=== PATIENT | female | born 1945 | race Asian ===

== ENCOUNTER 2019-02-23 20:41 | Inpatient (IN) | payer MEDICARE, MEDICAID ==
[~2019-02-23] VITALS: Ht 154.9 cm; Wt 60.3 kg
--- NOTE | 2019-02-23 21:00 | NUR ---
PATIENT BIB PRIVATE AMBULANCE FROM [facility] ON 5150 HOLD FOR DTS. PATIENT IS A/OX3. COOPERATIVE. DENIES SI BUT ADMITS TO BEING DEPRESSED. NO DISTRESS NOTED
[2019-02-23] MEDS ORDERED: INSU100C SQ (21:12)
[2019-02-23] MEDS ORDERED: ONDA2VIA IV (21:12)
[2019-02-23] MEDS ORDERED: HYDR20VI6 IVP (21:12)
[2019-02-23] MEDS ORDERED: LABE25SY IV (21:12)
[2019-02-23] MEDS ORDERED: ATOR40TA PO (21:12)
[2019-02-23] MEDS ORDERED: DEXT38GE12 PO (21:12)
[2019-02-23] MEDS ORDERED: LORA2DIS5 IVP (21:12)
[2019-02-23] MEDS ORDERED: FENT50AM IV (21:12)
[2019-02-23] MEDS ORDERED: GLUC1KIT IJ (21:12)
[2019-02-23] MEDS ORDERED: CIPR-262 PO (21:12)
[2019-02-23] MEDS ORDERED: PANT40VI IV (21:12)
[2019-02-23] MEDS ORDERED: DANT25CA2 PO (21:12)
[2019-02-23] MEDS ORDERED: GLIP1TAB6 PO (21:17)
[2019-02-23] MEDS ORDERED: ROSU10TA2 PO (21:17)
[2019-02-23] MEDS ORDERED: ASPI81TA31 PO (21:17)
[2019-02-23] MEDS ORDERED: VALS320T2 PO (21:17)
--- NOTE | 2019-02-23 21:30 | NUR ---
WAITING FOR PCXR RESULT
--- NOTE | 2019-02-23 22:22 | NUR ---
CALLED [facility] FOR READING FOR PCXR
--- NOTE | 2019-02-23 23:02 | NUR ---
MEDICALLY CLEARED BY DR OLEARY
--- NOTE | 2019-02-23 23:10 | NUR ---
TRANSFERED TO [facility] VIA [facility]
[2019-02-24] MEDS ORDERED: LORAZEPAM 1 MG TABLET PO PRN (00:30)
[2019-02-24] MEDS ORDERED: MAG HYDROX/AL HYDROX/SIMETH 30 ML LIQUID UDC PO PRN (00:30)
[2019-02-24] MEDS ORDERED: MAGNESIUM HYDROXIDE 30 ML LIQUID UDC PO PRN (00:30)
--- NOTE | 2019-02-24 01:59 | NUR ---
received to care, at 2330, from the emergency room, on a 72 hour hold, for danger to self, a transfer from [facility]. according to the hold, she had a failed suicide attempt, by overdosing on aspirin, and left a suicide note to her family. per the patient, she has been increasingly depressed over the past 4 years, ever since she had back surgery that was unsuccessful. she is non ambulatory and wheel chair bound. her family are her caregivers, but she feels she has been a burden to them. she was intubated during tx, and was extubated on 02/17. she also apparently had dialysis, as she came with a pressure dressing to her right lateral neck. upon arrival on the unit, she was pleasant, and cooperative. denied SI, or desire to harm self. advisement and patients rights booklet was given. pt was assisted to bed. as of now she remains asleep. no distress noted.
[2019-02-24 02:04] VITALS: BP 139/58
--- NOTE | 2019-02-24 06:00 | NUR ---
slept 5 hours total. no distress noted.
[2019-02-24 07:30] VITALS: BP 153/70
[2019-02-24] MEDS ORDERED: LABETALOL IV (07:56)
[2019-02-24] MEDS ORDERED: DEXTROSE 50% 50 ML DISP.SYRIN IV PRN (12:00)
[2019-02-24] MEDS ORDERED: VALSARTAN 160 MG TABLET PO SCH (12:24)
[2019-02-24] MEDS: glipiZIDE 5 MG TABLET PO SCH ×2 (13:35→16:54)
[2019-02-24] MEDS: METFORMIN HCL 500 MG TABLET PO SCH ×2 (13:35→16:54)
[2019-02-24] MEDS: CLONIDINE HCL 0.1 MG TABLET PO PRN (13:36)
--- NOTE | 2019-02-24 14:00 | NUR ---
Gps/LvnUnable to administer, diovan not a hope meds. per Sylvester Landrum , claimed trying to get hold of Dr Lozada to clarify order.
[2019-02-24] MEDS ORDERED: AMLO5TAB4 PO (14:22)
[2019-02-24] MEDS ORDERED: METO25TA6 PO (14:23)
[2019-02-24] MEDS ORDERED: PANT40TA2 PO (14:24)
[2019-02-24] MEDS ORDERED: CIPR-263 PO (14:25)
[2019-02-24 16:00] VITALS: BP 110/62
[2019-02-24] MEDS: BLOOD SUGAR DIAGNOSTIC 1 EACH STRIP VI SCH ×2 (16:34→21:54)
[2019-02-24] MEDS: INSULIN REGULAR, HUMAN 300 UNIT/3 ML VIAL SQ PRN (16:37)
[2019-02-24] MEDS ORDERED: METFORMIN HCL PO SCH (17:00)
[2019-02-24] MEDS ORDERED: GLIPIZIDE PO SCH (17:00)
[2019-02-24] MEDS ORDERED: [UNRECOGNIZED DRUG - OTHER] PO SCH (17:00)
--- NOTE | 2019-02-24 17:27 | NUR ---
Gps/Loader Magazine Grinder- Refused to get oob to her chair, per patient she cannot walk she uses wheel chair at home.
[2019-02-24 19:30] VITALS: BP 112/51
[2019-02-24] MEDS: ATORVASTATIN 40 MG TABLET PO SCH (20:15)
[2019-02-24] MEDS: SERTRALINE HCL 50 MG TABLET PO SCH (20:15)
[2019-02-24] MEDS: ACETAMINOPHEN 325 MG TABLET PO PRN (20:16)
--- NOTE | 2019-02-24 22:00 | NUR ---
received to care, lying in bed, pleasant upon approach. denies SI, or desire to harm self. compliant with medications and staff direction. temp initially was 100.1. tylenol and po fluids were given, and it went down to 97.4. as of 2199, she appears to be asleep. no distress noted. will continue to monitor closely.
--- NOTE | 2019-02-25 06:00 | NUR ---
slept 7.25 hours total. no distress noted.
[2019-02-25] MEDS: BLOOD SUGAR DIAGNOSTIC 1 EACH STRIP VI SCH ×4 (06:42→20:24)
[2019-02-25 07:21] LABS: BASOPHILS % (AUTO) 0.4 % (0.0-2.0); EOSINOPHILS # (AUTO) 0.1 K/uL (0.0-0.7); EOSINOPHILS % (AUTO) 2.3 % (0.0-7.0); HEMATOCRIT 27.1 % (31.2-41.9); HEMOGLOBIN 9.3 g/dL (10.9-14.3); LYMPHOCYTES # (AUTO) 0.6 K/uL (20.0-40.0); LYMPHOCYTES % (AUTO) 13.8 % (20.5-51.5); MEAN CORPUSCULAR HEMOGLOBIN 30.3 uug (24.7-32.8); MEAN CORPUSCULAR HGB CONC 34 g/dL (32.3-35.6); MEAN CORPUSCULAR VOLUME 88.6 fL (75.5-95.3); MONOCYTES # (AUTO) 0.3 K/uL (2.0-10.0); MONOCYTES % (AUTO) 6.4 % (0.0-11.0); NEUTROPHILS # (AUTO) 3.5 K/uL (1.8-8.9); NEUTROPHILS % (AUTO) 77.1 % (38.5-71.5); PLATELET COUNT (AUTO) 267 K/uL (179-408); RED BLOOD CELL COUNT(AUTO) 3.06 MIL/uL (3.63-4.92); WHITE BLOOD COUNT (AUTO) 4.6 K/uL (3.8-11.8)
[2019-02-25 07:30] VITALS: BP 120/70
[2019-02-25 07:40] LABS: THYROID STIMULATING HORMONE 0.646 mIU/mL (0.358-3.740)
[2019-02-25 08:05] LABS: ALANINE AMINOTRANSFERASE 12 U/L (14-59); ALKALINE PHOSPHATASE 111 U/L (50-136); ASPARTATE AMINOTRANSFERASE 11 U/L (15-37); BILIRUBIN,TOTAL 0.8 mg/dL (0.2-1.0); CARBON DIOXIDE 22 mmol/L (21-32); CHLORIDE 104 mmol/L (98-107); CREATININE 1.7 mg/dL (0.6-1.3); GLUCOSE 117 mg/dL (74-106); MAGNESIUM 2.2 mg/dL (1.8-2.4); PHOSPHOROUS 4.5 mg/dL (2.5-4.9); POTASSIUM 4.7 mmol/L (3.5-5.1); TOTAL PROTEIN, SERUM 6.8 g/dL (6.4-8.2)
[2019-02-25 08:49] LABS: UREA NITROGEN, BLOOD 41 mg/dL (7-18)
[2019-02-25] MEDS ORDERED: Medication Not On Formulary EA (Valsartan (Diovan) 320 MG) PO SCH (09:00)
[2019-02-25] MEDS: glipiZIDE 5 MG TABLET PO SCH ×2 (09:09→18:59)
[2019-02-25] MEDS: ASPIRIN 81 MG TAB.CHEW PO SCH (09:09)
[2019-02-25] MEDS: METFORMIN HCL 500 MG TABLET PO SCH ×2 (09:09→19:00)
[2019-02-25] MEDS: SERTRALINE HCL 50 MG TABLET PO SCH (09:09)
--- NOTE | 2019-02-25 09:51 | NUR ---
FIREARMS REPORT: Woods Rider completed and submitted a [facility] firearms report for [address] Disability certification. A copy of report has been placed in patient chart. Addendum: 02/25/19 at 0953 by ZULY LANDA Correction Report for 5150, Danger to Self
--- NOTE | 2019-02-25 10:53 | NUR ---
Discharge Plan Pt resides at home [[address] [place] [address]; [phone]] with and son. Daughter in law is the person to notify, January [[phone]]. Patient has been accepted to [facility] [[phone], spoke with Alexandro. pt will return there upon discharge. Per patient, "I would like to go to a long term facility". SW will speak with pt, family, and MD regarding appropriate discharge plans, SW will form a safe and proper discharge plan.
[2019-02-25] MEDS: INSULIN REGULAR, HUMAN 300 UNIT/3 ML VIAL SQ PRN (12:00)
[2019-02-25 15:54] VITALS: BP 121/62
[2019-02-25 20:49] VITALS: BP 122/56
[2019-02-25] MEDS: ATORVASTATIN 40 MG TABLET PO SCH (21:00)
[2019-02-25] MEDS: ACETAMINOPHEN 325 MG TABLET PO PRN (21:01)
[2019-02-25] MEDS: TEMAZEPAM 7.5 MG CAPSULE PO PRN (21:01)
[2019-02-26] MEDS: BLOOD SUGAR DIAGNOSTIC 1 EACH STRIP VI SCH ×4 (06:45→20:05)
[2019-02-26 08:00] VITALS: BP 134/73
[2019-02-26] MEDS: SERTRALINE HCL 50 MG TABLET PO SCH (08:27)
[2019-02-26] MEDS: ASPIRIN 81 MG TAB.CHEW PO SCH (08:27)
[2019-02-26] MEDS: glipiZIDE 5 MG TABLET PO SCH ×2 (08:36→16:26)
[2019-02-26] MEDS: METFORMIN HCL 500 MG TABLET PO SCH ×2 (08:36→16:26)
--- NOTE | 2019-02-26 12:35 | NUR ---
GPS :PATIENT AOX3, DENIES PAIN DENIES SI AND HI, PATIENT REFUSE TO SIT ON THE CHAIR,COMPLIANT WITH MEDICATION REMAINS ISOLATIVE AND WITHDRAWN, WILL CONTINUE MONITOR
[2019-02-26 16:00] VITALS: BP 140/75
[2019-02-26] MEDS: INSULIN REGULAR, HUMAN 300 UNIT/3 ML VIAL SQ PRN ×2 (16:33→20:23)
[2019-02-26] MEDS: ATORVASTATIN 40 MG TABLET PO SCH (20:05)
[2019-02-26] MEDS: CLONIDINE HCL 0.1 MG TABLET PO PRN (20:24)
[2019-02-26 20:34] VITALS: BP 174/63
[2019-02-27] MEDS: BLOOD SUGAR DIAGNOSTIC 1 EACH STRIP VI SCH ×4 (06:32→21:05)
--- NOTE | 2019-02-27 06:44 | NUR ---
AM BS 153. ADLs performed, diaper changed, skin care provided. Remained isolative and seclusive for the entire shift. Slept 8 hours.
[2019-02-27 07:30] VITALS: BP 141/70
[2019-02-27] MEDS: INSULIN REGULAR, HUMAN 300 UNIT/3 ML VIAL SQ PRN (07:35)
[2019-02-27] MEDS: glipiZIDE 5 MG TABLET PO SCH ×2 (08:13→17:21)
[2019-02-27] MEDS: SERTRALINE HCL 50 MG TABLET PO SCH (08:13)
[2019-02-27] MEDS: ASPIRIN 81 MG TAB.CHEW PO SCH (08:13)
[2019-02-27] MEDS: METFORMIN HCL 500 MG TABLET PO SCH (08:13)
[2019-02-27] MEDS: LINAGLIPTIN 5 MG TABLET PO SCH (17:21)
[2019-02-27 20:00] VITALS: BP 142/59
--- NOTE | 2019-02-27 20:15 | NUR ---
RECEIVED PATIENT IN HER ROOM IN BED, SHE IS NOTED AWAKE A/O X 3. ABLE TO VERBALIZED FEELINGS. SHE IS CALM AND PLEASANT UPON APPROACHED. SHE CONTINUE WITHDRAWN, LOW MOOD. HOWEVER, SHE DENIES SI AND SHE IS ABLE TO CFS. UPON INTERVIEW, SHE STATED, "I AM GOING TO A [facility] AFTER HERE". PATIENT V/S STABLE. ACCU CHECK QHS 82. PATIENT IS TOTAL CARE. FALL AND SAFETY PRECAUTION ARE IN PLACE. PT IS REASSURED FOR HIS SAFETY. WILL CONTINUE TO MONITOR.
[2019-02-27] MEDS: ATORVASTATIN 40 MG TABLET PO SCH (21:04)
[2019-02-28] MEDS: BLOOD SUGAR DIAGNOSTIC 1 EACH STRIP VI SCH ×4 (06:25→20:03)
[2019-02-28 07:30] VITALS: BP 168/87
[2019-02-28 07:32] LABS: BASOPHILS % (AUTO) 0.7 % (0.0-2.0); EOSINOPHILS # (AUTO) 0.1 K/uL (0.0-0.7); EOSINOPHILS % (AUTO) 1.8 % (0.0-7.0); HEMATOCRIT 24.5 % (31.2-41.9); HEMOGLOBIN 8.3 g/dL (10.9-14.3); LYMPHOCYTES # (AUTO) 0.6 K/uL (20.0-40.0); LYMPHOCYTES % (AUTO) 13.1 % (20.5-51.5); MEAN CORPUSCULAR HEMOGLOBIN 29.7 uug (24.7-32.8); MEAN CORPUSCULAR HGB CONC 34 g/dL (32.3-35.6); MEAN CORPUSCULAR VOLUME 87.6 fL (75.5-95.3); MONOCYTES # (AUTO) 0.5 K/uL (2.0-10.0); MONOCYTES % (AUTO) 10.6 % (0.0-11.0); NEUTROPHILS # (AUTO) 3.2 K/uL (1.8-8.9); NEUTROPHILS % (AUTO) 73.8 % (38.5-71.5); PLATELET COUNT (AUTO) 278 K/uL (179-408); WHITE BLOOD COUNT (AUTO) 4.3 K/uL (3.8-11.8)
[2019-02-28 08:11] LABS: ALANINE AMINOTRANSFERASE < 6 U/L (14-59); ALKALINE PHOSPHATASE 89 U/L (50-136); ASPARTATE AMINOTRANSFERASE 9 U/L (15-37); BILIRUBIN,TOTAL 0.7 mg/dL (0.2-1.0); CARBON DIOXIDE 25 mmol/L (21-32); CHLORIDE 103 mmol/L (98-107); CREATININE 1.6 mg/dL (0.6-1.3); GLUCOSE 144 mg/dL (74-106); MAGNESIUM 2.2 mg/dL (1.8-2.4); PHOSPHOROUS 3.5 mg/dL (2.5-4.9); POTASSIUM 4.2 mmol/L (3.5-5.1); TOTAL PROTEIN, SERUM 7.3 g/dL (6.4-8.2); UREA NITROGEN, BLOOD 38 mg/dL (7-18)
[2019-02-28] MEDS: glipiZIDE 5 MG TABLET PO SCH ×2 (08:36→16:38)
[2019-02-28] MEDS: SERTRALINE HCL 50 MG TABLET PO SCH (08:36)
[2019-02-28] MEDS: LINAGLIPTIN 5 MG TABLET PO SCH (08:36)
[2019-02-28] MEDS: ASPIRIN 81 MG TAB.CHEW PO SCH (08:36)
[2019-02-28] MEDS: ACETAMINOPHEN 325 MG TABLET PO PRN (08:53)
[2019-02-28 10:05] LABS: *CLARITY,URINE TURBID (CLEAR)
[2019-02-28 10:11] LABS: BACTERIA,URINE MANY /HPF (NONE SEEN); RBC,URINE 80-100 /HPF (0-3); WBC,URINE TNTC /HPF (0-3)
[2019-02-28 10:12] LABS: SQUAMOUS EPITHELIAL CELL,UR FEW /HPF (NONE SEEN)
[2019-02-28 10:12] LABS: CREATINE KINASE, TOTAL 34 U/L (26-192)
[2019-02-28 11:14] LABS: *CREATININE,URINE 59.8 mg/dL (30-125)
[2019-02-28] MEDS: INSULIN REGULAR, HUMAN 300 UNIT/3 ML VIAL SQ PRN ×2 (11:38→20:06)
[2019-02-28 15:23] VITALS: BP 146/74
[2019-02-28] MEDS: SULFAMETH/TRIMETH 800/160 MG TABLET PO SCH (16:38)
--- NOTE | 2019-02-28 17:07 | NUR ---
RECIEVED PATIENT AOX4, ISOLATIVE AND WITHDRAWN, COLLECTED URINE , PATIENT URINE POSITIVE WITH UTI, STARTED WITH ATB, ENCOURAGE HYDRATION, PATIENT HAD ULTRASOUND OF BLADDER AND KIDNEY , PATIENT SEEN RETAINING URINE , STRAIGHT CATHETER DONE WITH TEA COLORED WITH PUS URINE NOTED, PATIENT URINE OUTPUT MWAS AT 1600ML, DENIES PAIN , COMPLIANT WITH MEDICATION, PATIENT VERBALIZES THAT AT HOME SHE WAS THE ONE DOING HER ADL
[2019-02-28 20:00] VITALS: BP 127/66
[2019-02-28] MEDS: ATORVASTATIN 40 MG TABLET PO SCH (20:03)
[2019-03-01] MEDS: ACETAMINOPHEN 325 MG TABLET PO PRN (06:42)
[2019-03-01] MEDS: BLOOD SUGAR DIAGNOSTIC 1 EACH STRIP VI SCH ×4 (06:42→20:46)
--- NOTE | 2019-03-01 06:50 | NUR ---
Pt noted to retain urine. Bladder scanned and >999ml noted in all 4 quadrants. Pt c/o mild discomfort, Tylenol 650mg administered per her request. [employer] called and message was left for Bharat Glynn regarding urine retention, awaiting call back. Will endorse to oncoming shift.
--- NOTE | 2019-03-01 06:52 | NUR ---
AM BS 78
[2019-03-01 07:13] LABS: BASOPHILS % (AUTO) 0.9 % (0.0-2.0); EOSINOPHILS # (AUTO) 0.1 K/uL (0.0-0.7); EOSINOPHILS % (AUTO) 3.7 % (0.0-7.0); HEMATOCRIT 23.7 % (31.2-41.9); HEMOGLOBIN 8.1 g/dL (10.9-14.3); LYMPHOCYTES # (AUTO) 0.6 K/uL (20.0-40.0); LYMPHOCYTES % (AUTO) 18.2 % (20.5-51.5); MEAN CORPUSCULAR HEMOGLOBIN 29.8 uug (24.7-32.8); MEAN CORPUSCULAR HGB CONC 34 g/dL (32.3-35.6); MEAN CORPUSCULAR VOLUME 87.2 fL (75.5-95.3); MONOCYTES # (AUTO) 0.3 K/uL (2.0-10.0); MONOCYTES % (AUTO) 8.8 % (0.0-11.0); NEUTROPHILS # (AUTO) 2.4 K/uL (1.8-8.9); NEUTROPHILS % (AUTO) 68.4 % (38.5-71.5); PLATELET COUNT (AUTO) 303 K/uL (179-408); RED BLOOD CELL COUNT(AUTO) 2.72 MIL/uL (3.63-4.92); WHITE BLOOD COUNT (AUTO) 3.5 K/uL (3.8-11.8)
[2019-03-01 07:26] LABS: IRON, SERUM 24 ug/dL (50-175)
[2019-03-01 07:30] VITALS: BP 142/69
--- NOTE | 2019-03-01 07:45 | NUR ---
inserted luque cath obtains 1550 ml of tea color urine .
[2019-03-01 07:52] LABS: ALANINE AMINOTRANSFERASE 9 U/L (14-59); ALKALINE PHOSPHATASE 86 U/L (50-136); ASPARTATE AMINOTRANSFERASE 10 U/L (15-37); BILIRUBIN,TOTAL 0.4 mg/dL (0.2-1.0); CARBON DIOXIDE 25 mmol/L (21-32); CHLORIDE 105 mmol/L (98-107); CREATININE 1.4 mg/dL (0.6-1.3); FERRITIN 429 ng/mL (8-252); GLUCOSE 86 mg/dL (74-106); MAGNESIUM 2.1 mg/dL (1.8-2.4); PHOSPHOROUS 3.9 mg/dL (2.5-4.9); POTASSIUM 3.9 mmol/L (3.5-5.1); TOTAL PROTEIN, SERUM 7.1 g/dL (6.4-8.2); UREA NITROGEN, BLOOD 32 mg/dL (7-18)
[2019-03-01] MEDS: ASPIRIN 81 MG TAB.CHEW PO SCH (08:26)
[2019-03-01] MEDS: SULFAMETH/TRIMETH 800/160 MG TABLET PO SCH ×2 (08:26→16:34)
[2019-03-01] MEDS: glipiZIDE 5 MG TABLET PO SCH ×2 (08:26→16:34)
[2019-03-01] MEDS: LINAGLIPTIN 5 MG TABLET PO SCH (08:30)
[2019-03-01] MEDS: SERTRALINE HCL 100 MG TABLET PO SCH (08:30)
[2019-03-01] MEDS: INSULIN REGULAR, HUMAN 300 UNIT/3 ML VIAL SQ PRN (11:47)
[2019-03-01 13:09] LABS: A/G RATIO 0.9 (0.7-1.7); ALBUMIN 3.1 g/dL (2.9-4.4); ALPHA-1-GLOBULIN 0.4 g/dL (0.0-0.4); ALPHA-2-GLOBULIN 1.3 g/dL (0.4-1.0); BETA GLOBULIN 0.8 g/dL (0.7-1.3); GAMMA GLOBULIN 0.9 g/dL (0.4-1.8); GLOBULIN, TOTAL 3.4 g/dL (2.2-3.9); M-SPIKE 0.2 g/dL (Not Observed)
[2019-03-01 15:28] VITALS: BP 123/57
--- NOTE | 2019-03-01 18:11 | NUR ---
GPS: PATIENT ALERT ORIENT X4, DENIES SI AND HI, PATIENT ON KRAUSE CATHETER, WITH URINE OUTPUT IN TEA COLORED, NOTED SOME SEDIMENTS, PATIENT DENIES ANY PAIN AT THIS TIME, CALM AND COOPERATIVE, VERBALIZES HER CONCERN ON DISCHARGE PLANNING, PATIENT BLOOD SUGAR AT 4:30PM WAS AT 69, GAVE ORANGE JUICE AND RE CHECKED BS AND WENT UP TO 119, WILL CONTINUE MONITOR
[2019-03-01] MEDS: MAGNESIUM HYDROXIDE 30 ML LIQUID UDC PO PRN (18:42)
[2019-03-01 20:04] VITALS: BP 110/50
[2019-03-01] MEDS: ATORVASTATIN 40 MG TABLET PO SCH (20:38)
[2019-03-02] MEDS: TEMAZEPAM 7.5 MG CAPSULE PO PRN (00:53)
[2019-03-02] MEDS: ACETAMINOPHEN 325 MG TABLET PO PRN (03:47)
[2019-03-02] MEDS: BLOOD SUGAR DIAGNOSTIC 1 EACH STRIP VI SCH ×4 (06:14→21:15)
[2019-03-02 07:30] VITALS: BP 126/65
[2019-03-02] MEDS: MAGNESIUM HYDROXIDE 30 ML LIQUID UDC PO PRN (08:15)
[2019-03-02] MEDS: ASPIRIN 81 MG TAB.CHEW PO SCH (08:15)
[2019-03-02] MEDS: glipiZIDE 5 MG TABLET PO SCH ×2 (08:15→16:40)
[2019-03-02] MEDS: SULFAMETH/TRIMETH 800/160 MG TABLET PO SCH ×2 (08:15→16:40)
[2019-03-02] MEDS: LINAGLIPTIN 5 MG TABLET PO SCH (08:16)
[2019-03-02] MEDS: SERTRALINE HCL 100 MG TABLET PO SCH (08:16)
[2019-03-02 15:30] VITALS: BP 145/71
[2019-03-02] MEDS ORDERED: BISACODYL 5 MG TABLET.DR PO PRN (15:30)
--- NOTE | 2019-03-02 17:54 | NUR ---
RECEIVED PATIENT AOX4, PATIENT DENIES SI AND HI, CALM AND COOPERATIVE, PATIENT SHOWS READINESS FOR DISCHARGE, PATIENT MADE PHONE CALLS TO HER FAMILY AND CONCERN ON THE TRANSPORTATION FOR HER DISCHARGE PLANNING [place], PATIENT COMPLIANT WITH HER MEDICATION, WILL CONTINUE MONITOR
[2019-03-02 20:28] VITALS: BP 134/56
[2019-03-02] MEDS: ATORVASTATIN 40 MG TABLET PO SCH (20:30)
[2019-03-03] MEDS: BLOOD SUGAR DIAGNOSTIC 1 EACH STRIP VI SCH ×2 (06:35→12:00)
[2019-03-03 07:17] LABS: BASOPHILS % (AUTO) 0.9 % (0.0-2.0); EOSINOPHILS # (AUTO) 0.1 K/uL (0.0-0.7); EOSINOPHILS % (AUTO) 5.1 % (0.0-7.0); HEMATOCRIT 23.5 % (31.2-41.9); HEMOGLOBIN 8.2 g/dL (10.9-14.3); LYMPHOCYTES # (AUTO) 0.6 K/uL (20.0-40.0); LYMPHOCYTES % (AUTO) 21.4 % (20.5-51.5); MEAN CORPUSCULAR HEMOGLOBIN 30.1 uug (24.7-32.8); MEAN CORPUSCULAR HGB CONC 35 g/dL (32.3-35.6); MEAN CORPUSCULAR VOLUME 86.4 fL (75.5-95.3); MONOCYTES # (AUTO) 0.3 K/uL (2.0-10.0); MONOCYTES % (AUTO) 9.6 % (0.0-11.0); NEUTROPHILS # (AUTO) 1.7 K/uL (1.8-8.9); PLATELET COUNT (AUTO) 331 K/uL (179-408); RED BLOOD CELL COUNT(AUTO) 2.71 MIL/uL (3.63-4.92); WHITE BLOOD COUNT (AUTO) 2.7 K/uL (3.8-11.8)
[2019-03-03 07:25] LABS: ALANINE AMINOTRANSFERASE 12 U/L (14-59); ALKALINE PHOSPHATASE 78 U/L (50-136); ASPARTATE AMINOTRANSFERASE 13 U/L (15-37); BILIRUBIN,TOTAL 0.4 mg/dL (0.2-1.0); CARBON DIOXIDE 22 mmol/L (21-32); CHLORIDE 107 mmol/L (98-107); CREATININE 1.1 mg/dL (0.6-1.3); GLUCOSE 107 mg/dL (74-106); MAGNESIUM 1.7 mg/dL (1.8-2.4); PHOSPHOROUS 3.1 mg/dL (2.5-4.9); POTASSIUM 4.4 mmol/L (3.5-5.1); TOTAL PROTEIN, SERUM 7.4 g/dL (6.4-8.2); UREA NITROGEN, BLOOD 14 mg/dL (7-18)
[2019-03-03 07:30] VITALS: BP 152/60
[2019-03-03] MEDS: ACETAMINOPHEN 325 MG TABLET PO PRN (07:50)
[2019-03-03] MEDS: SULFAMETH/TRIMETH 800/160 MG TABLET PO SCH (08:15)
[2019-03-03] MEDS: LINAGLIPTIN 5 MG TABLET PO SCH (08:16)
[2019-03-03] MEDS: glipiZIDE 5 MG TABLET PO SCH (08:16)
[2019-03-03] MEDS: SERTRALINE HCL 100 MG TABLET PO SCH (08:16)
[2019-03-03] MEDS: ASPIRIN 81 MG TAB.CHEW PO SCH (08:16)
--- NOTE | 2019-03-03 08:25 | NUR ---
Discharge Note Patient will be discharged to [facility] [[address] [place] [address]; ]. Patient�s Jonathan rodriguez [[phone]] will be picking her up between 2-3:00pm and transporting her to [facility]. Patient is alert and oriented x4, and denies current suicidal ideation or homicidal ideation. Chef French spoke with Lisa [[phone]], Inspector [employer] at [facility], who stated patient is able to admit to facility today. Patient aware and agreeable with discharge plan. Patient will follow up with the new assigned [employer] and Psychiatrist at [facility]. Patient was provided with brief substance abuse intervention and referred to [facility] Substance Abuse Helpline ; [facility] Crisis Line ; [facility] [place] [facility] . Addendum: 03/03/19 at 0835 by JO ANN MULLEN Accepting psychiatrist is Dr. Tan and accepting [employer] Dr. Diallo. Addendum: 03/03/19 at 1349 by JO ANN MULLEN Patient will be picked up by Ambulance at 2pm from [facility], and transported to [facility] [[address] [place] [address]; ]
[2019-03-03 08:32] LABS: BAND % (MANUAL) 2 % (0-10); BASOPHILS % (MANUAL) 0 % (0-2); EOSINOPHILS % (MANUAL) 2 % (0-8); LYMPHOCYTES % (MANUAL) 19 % (20-40); MONOCYTES % (MANUAL) 5 % (2-10); NEUTROPHILS % (MANUAL) 72 % (42-75)
[2019-03-03] MEDS ORDERED: MAGNESIUM OXIDE 400 MG TABLET PO ONE (13:00)
--- NOTE | 2019-03-03 14:00 | NUR ---
Gps/Office Executive- Called [facility], repost was given to Marylin Nurse Water Sander.All belongings was given back to patient( $72 + red wallet with cards). Was well informed of her discharge plan.Patient in good spirit, with no new complaints noted. Ambulance in to transport patient to [place] ([facility]).
--- NOTE | 2019-03-03 14:23 | NUR ---
Gps/Direct Service Provider- Discharged via ambulance with no sign of any distress.Denies any S.I. nor H.I. Family was well informed of the discharge as noted.
== END 2019-03-03 14:30 | DRG 881 ==
LOC: ER 20:46 → GPS 23:02
PROVIDERS: ADMIT Psychiatry & Neurology Psychiatry; ATTEND Internal Medicine
PROC: 0T9B70Z Drainage of Bladder with Drainage Device, Via Natural or Artificial Opening (ICD-10-PCS; principal; 2019-03-01)
DX: F32.9 Major depressive disorder, single episode, unspecified (principal); N18.9 Chronic kidney disease, unspecified; N17.9 Acute kidney failure, unspecified; N39.0 Urinary tract infection, site not specified; T39.012D Poisoning by aspirin, intentional self-harm, subsequent encounter; T49.4X Poisoning by, adverse effect of and underdosing of keratolytics, keratoplastics, and other hair treatment drugs and preparations; Z79.82 Long term (current) use of aspirin; E78.5 Hyperlipidemia, unspecified; Z79.4 Long term (current) use of insulin; Z88.0 Allergy status to penicillin; B96.20 Unspecified Escherichia coli [E. coli] as the cause of diseases classified elsewhere; E11.22 Type 2 diabetes mellitus with diabetic chronic kidney disease; I13.10 Hypertensive heart and chronic kidney disease without heart failure, with stage 1 through stage 4 chronic kidney disease, or unspecified chronic kidney disease; Z79.84 Long term (current) use of oral hypoglycemic drugs; G89.29 Other chronic pain; D64.9 Anemia, unspecified; Z74.01 Bed confinement status; K21.9 Gastro-esophageal reflux disease without esophagitis; R33.9 Retention of urine, unspecified
CPT/HCPCS: 36415; 70030-TC; 71045; 76770; 83550; 83735; 83970; 84100; 84155; 84156; 84165; 84300; 84443; 85025; 87077; 87086; 93005; 97110; 97112; 97530; A4663; J1815